=== PATIENT | female | born 1955 | race Caucasian/White ===

== ENCOUNTER 2025-07-21 10:10 | Outpatient (AMB) | payer MEDICAID, SELFPAY ==
--- NOTE | 2025-07-21 10:16 | A.PHYSOV ---
Vital Signs 07/21/25 10:17 Height 5 ft 5.75 in Weight 136 lb 10.986 oz BMI 22.2 Intake Visit Reasons: Right shoulder injection Intake Note: Patient is a 70 year old female in office today for Right Shoulder Injection and wrist injection Rubber Off Required: Yes Rubber Off Services: Rubber Off Offered & Declined Allergies No Known Allergies Allergy (Verified 07/21/25 10:15) HPI Comments Details: History of Present Illness The patient is a 70-year-old female presenting for a follow-up visit for chronic lower back pain and evaluation of increasing right wrist and shoulder pain. She has a history of chronic lower back pain and has undergone multiple lumbar procedures, including caudal injections, right sacroiliac joint injections, and left L5 transforaminal injections. Her most recent right SI joint injection was on April 08, 2025, and a previous one was in September 2024, both of which were helpful. She notes her back pain is beginning to flare up again. At her last follow-up on April 27, 2025, she complained of increasing right wrist pain and also reports increasing pain in her right shoulder. She has a history of receiving beneficial carpal tunnel injections in the past. She also had right shoulder subacromial injection with good benefit previously. Anterior approach was utilized. She reports numbness and tingling in her right upper extremity. Electrodiagnostic evaluation of right upper extremity was done on 01/18/2025. It was consistent with [id number] right carpal tunnel syndrome. As per patient she has been diagnosed with cervical radiculopathy previously in [place]. I do not have any diagnostic imaging of her cervical spine. I do not have any diagnostic imaging of her right wrist or right shoulder at this time. The current right hand pain is severe, wakes her from sleep, and causes a cramping sensation, for which a wrist brace has not been effective. Pain Description - Location: Chronic pain in the lower back, with new and increasing pain in the right wrist and right shoulder. - Quality: Reports a severe, cramping or seizing sensation with prickling in the right hand. - Severity and Impact: The hand pain is described as terrible, disrupts her sleep, and requires her to remove her CPAP mask at night. - Exacerbating Factors: Pain is worse at night and when turning over in bed. - Relieving Factors: Past injections for her back and wrist have been beneficial. Results - Tests and Diagnostics: Electrodiagnostic evaluation of right upper extremity performed on on 01/18/2025 consistent with [id number] carpal tunnel syndrome. [facility] Medical History (Updated 07/21/25 @ 10:54 by Cholo Funes DO) Osteoarthritis of carpometacarpal joint of right thumb Low back pain Sacroiliac inflammation Sacroiliac dysfunction Cervical radiculitis Neck pain Rotator cuff impingement syndrome of right shoulder Right shoulder pain Right carpal tunnel syndrome Right wrist pain Surgical History History of uterine fibroid (Unknown) History of appendectomy (Unknown) History of bunionectomy (Unknown) Social History Household Members: Spouse Alcohol intake: current Alcohol intake frequency: holidays/special occasions only Patient Tobacco Use Status: Former Tobacco user Use of substances other than those prescribed or required for medical reasons: No Current occupational status: retired Review of Systems Narrative Review of Systems - Musculoskeletal: Reports chronic lower back pain, increasing right shoulder pain, and increasing right wrist pain. - Neurological: Reports right hand cramping and prickling sensations that awaken her from sleep. - HEENT: Reports hoarseness and dysphagia with globus sensation since April 2025. - General: Reports disturbed sleep due to pain. Denies change in bowel bladder habits, denies fever or chills, denies uncontrolled depression or suicidal ideation Physical Exam Exam Exam: Physical Exam - Musculoskeletal: Palpation of the right wrist elicits tenderness. Pain with palpation over right thumb CMC joint. Crepitance with right thumb range of motion testing. Spurling maneuver was negative. Cervical range of motion was restricted in side bending and rotation to the right. Lhermitte's sign was negative. Neurological examination of upper extremities was nonfocal. Mild wasting of the right thenar eminence muscles. Lumbar range of motion was restricted in extension. Pain with palpation over right SI sulcus. SI provocative maneuvers including fabere, [place] and SI compression tests were positive. Dural tension signs were negative. Patient ambulates without antalgia. She was able to perform heel walk and toe walk with support for balance. She demonstrated no upper motor neuron signs. Examination of the right shoulder reveals positive Vargas and Neer signs. Range of motion was normal. Drop-arm test was negative, shoulder apprehension test was negative. Vital Signs: BMI result Body Mass Index 22.2 Office Procedures AMB Carpal Tunnel Injection AMB Carpal Tunnel Injection Details: With patient sitting right hand resting on the examination table skin over carpal tunnel was prepped with alcohol. 1.5 in 25 gauge hypodermic needle was introduced into the carpal tunnel and total volume of 1 cc containing 20 mg of triamcinolone and 1% lidocaine was injected after negative aspiration for blood and without resistance. Carpal Tunnel Injection -: Right All charges added?: Procedure code (CPT) selection complete AMB Shoulder Injection AMB Shoulder Injection Procedure Details: After informed consent was obtained, anterior aspect of the right shoulder was prepped with Betadine. 1.5 in 22 gauge hypodermic needle was introduced percutaneously and advanced into the subacromial area. After negative aspiration for blood total volume of 6 cc containing 40 mg of triamcinolone and 2% lidocaine was injected without resistance. Patient tolerated procedure very well without complications with excellent anesthetic response. Shoulder Injection - : Right All charges added?: Procedure code (CPT) selection complete Office Meds Kenalog 40 mg/mL suspension for injection Performing Provider: Cholo Funes DO Per[facility] Administered by: Cholo Funes DO on 07/21/25 10:58 Dose Route Admin Location Dispensed Lot Number Expiration Date [facility] Instructional Manager 20 mg peripheral nerve block 1 mL [id number] [employer] Total Dispensed Waste 1 mL 50 % lidocaine (PF) 20 mg/mL (2 %) injection solution Performing Provider: Cholo Funes DO Performing Location: [facility] Administered by: Cholo Funes DO on 07/21/25 10:58 Dose Route Admin Location Dispensed Lot Number Expiration Date [facility] Instruction[employer] Manager 10 mg peripheral nerve block 5 mL [id number] [employer] Total Dispensed Waste 5 mL 90 % Kenalog 40 mg/mL suspension for injection Performing Provider: Cholo Funes DO Performing [facility] Administered by: Cholo Funes DO on 07/21/25 10:58 Dose Route Admin Location Dispensed Lot Number Expiration Date [facility] Instruction[employer] 40 mg intrabursal 1 mL [id number] [employer] Total Dispensed Waste 1 mL 0 % lidocaine (PF) 20 mg/mL (2 %) injection solution Performing Provider: Cholo Funes DO Performing Location: [facility] Administered by: Cholo Funes DO on 07/21/25 10:58 Dose Route Admin Location Dispensed Lot Number Expiration Date [employer] Instruction[employer] 120 mg intrabursal 10 mL [id number] [facility] Total Disp[facility] Waste 10 mL 40 % Assessment & Plan Assessment & Plan (1) Right wrist pain: Code(s): M25.531 - Pain in right wrist Category: Medical (2) Right carpal tunnel syndrome: Code(s): G56.01 - Carpal tunnel syndrome, right upper limb Category: Medical (3) Right shoulder pain: Code(s): M25.511 - Pain in right shoulder Category: Medical Qualifiers: Chronicity: chronic Qualified Code(s): M25.511 - Pain in right shoulder; G89.29 - Other chronic pain (4) Rotator cuff impingement syndrome of right shoulder: Code(s): M75.41 - Impingement syndrome of right shoulder Category: Medical (5) Neck pain: Code(s): M54.2 - Cervicalgia Category: Medical (6) Cervical radiculitis: Code(s): M54.12 - Radiculopathy, cervical region Category: Medical (7) Sacroiliac dysfunction: Code(s): M53.3 - Sacrococcygeal disorders, not elsewhere classified Category: Medical (8) Sacroiliac inflammation: Code(s): M46.1 - Sacroiliitis, not elsewhere classified Category: Medical (9) Low back pain: Code(s): M54.50 - Low back pain, unspecified Category: Medical Qualifiers: Chronicity: chronic Back pain laterality: right Sciatica presence: without sciatica Qualified Code(s): M54.50 - Low back pain, unspecified; G89.29 - Other chronic pain (10) Osteoarthritis of carpometacarpal joint of right thumb: Code(s): M18.11 - Unilateral primary osteoarthritis of first carpometacarpal joint, right hand Category: Medical Plan Pain Management - Analgesia: The patient reports significant relief from past lumbar procedures, including caudal, right SI joint, and L5 transforaminal injections, as well as prior carpal tunnel injections. - Activities of Daily Living: Right hand and shoulder pain significantly interfere with her ability to sleep. - Affect: The patient expresses significant distress due to her pain, describing it as terrible. Plan Patient was informed and verbally consented to the use of an ambient scribe for clinic note documentation during this visit. 1. Chronic Lower Back Pain The patient reports her chronic lower back pain is starting to increase again. Given her positive response to prior procedures, the plan is to schedule repeat right SI joint injection, consistent with the treatment she received in March 2025. 2. Right Wrist And Shoulder Pain The patient presents with worsening right shoulder and wrist pain, with nocturnal exacerbations suggestive of carpal tunnel syndrome, though pain may also originate from the shoulder. To further evaluate, referrals for X-rays of the right shoulder and right wrist will be provided. Proceed with cervical spine x-rays. Cervical spine MRI may be considered in the future. Further management will be determined after reviewing the imaging results. Discussion Notes I discussed her chronic low back pain and the good response she has had to prior injections. We agreed to schedule repeat of the right SI joint injection. Risks and benefits of the procedure were discussed with the patient. Potential alternative measures were also discussed. Patient understands that the procedure is completely elective. Potential side effects associated with injectable medications were discussed. All questions were answered to the patient's satisfaction. Regarding her right upper extremity pain, I explained that the symptoms could be due to carpal tunnel syndrome or a shoulder issue. I provided her with a referral for X-rays of her right wrist, cervical spine and right shoulder to investigate further. The patient agreed to this plan, and we will follow up after the imaging is completed. Patient Instructions - A referral was provided for you to get X-rays of your right shoulder, cervical spine and right wrist. Please complete this imaging. - We will schedule you for another right SI joint injection for your low back pain, similar to the one you had before. - Follow up with your surgeon to discuss the recent changes in your voice and difficulty swallowing. Orders: Orders XR shoulder RT min 2V Today M25.511 - Pain in right shoulder, M75.41 - Impingement syndrome of right shoulder AMB Shoulder Injection Today M75.41 - Impingement syndrome of right shoulder AMB Carpal Tunnel Injection Today G56.01 - Carpal tunnel syndrome, right upper limb XR wrist RT 2V Today G56.01 - Carpal tunnel syndrome, right upper limb, M25.531 - Pain in right wrist XR cervical spine 3V Today M54.12 - Radiculopathy, cervical region, M54.2 - Cervicalgia Coding Level of Care Code Est Pt Level 4 (49671) Complex visit Add On G2211 Diagnoses Right wrist pain M25.531 Right carpal tunnel syndrome G56.01 Chronic right shoulder pain M25.511; G89.29 Chronicity: chronic Rotator cuff impingement syndrome of right shoulder M75.41 Neck pain M54.2 Cervical radiculitis M54.12 Sacroiliac dysfunction M53.3 Sacroiliac inflammation M46.1 Chronic right-sided low back pain without sciatica M54.50; G89.29 Chronicity: chronic Back pain laterality: right Sciatica presence: without sciatica Osteoarthritis of carpometacarpal joint of right thumb M18.11 CPT Codes AMB Carpal Tunnel Injection - Carpal Tunnel Therapeutic Injection - : Right ([id number]) AMB Shoulder Injection - Hip/Bursa Injection - : Right ([id number])
[2025-07-21 10:17] VITALS: BMI 22.2
--- OUTSIDE RECORDS SUMMARY | 2025-07-21 12:11 | XMS_ITS | Clinical Summary ---
Author Organization [place] [id number] [facility] Building Address [address] [place] [address] Phone Care Team Providers Care Incinerator Attendant Name Role Phone Nerissa Rubio MD Primary Care Provider Allergies No known active allergies Medications rhubarb root extract 4 mg tablet Take by mouth. 09/02/19 24 Active traMADoL (ULTRAM) 50 mg tablet Take 1 Tablet by mouth every 4 hours as needed. Active rivaroxaban (XARELTO) 20 mg tablet Take 1 tablet (20 mg total) by mouth 1 (one) time each day with dinner. Take with food. 30 tablet 11 09/23/19 25 Active losartan (Cozaar) 25 mg tabletIndication s:Primary hypertension Take 1 tablet (25 mg total) by mouth 1 (one) time each day. 90 each 3 07/06/20 25 026 Active metoprolol succinate (TOPROL-XL) 50 mg 24 hr tablet Take 1 tablet (50 mg total) by mouth 1 (one) time each day. Do not crush or chew. 30 each 07/07/20 25 026 Active losartan (Cozaar) 25 mg tablet Take 1 tablet (25 mg total) by mouth 1 (one) time each day. 30 each 09/23/19 25 025 Discontinued(Re order) metoprolol succinate (TOPROL-XL) 25 mg 24 hr tablet Take 1 tablet (25 mg total) by mouth 1 (one) time each day. Do not crush or chew. 30 each 09/23/19 25 025 Discontinued(Do se adjustment) dilTIAZem XR (DILACOR XR) 180 mg 24 hr capsule Take 1 capsule (180 mg total) by mouth 1 (one) time each day. 30 capsule 11 09/23/19 25 025 Discontinued dilTIAZem CD (CARDIZEM CD) 240 mg 24 hr capsuleIndicatio ns:Atrial fibrillation with RVR (CMS/HCC V24, CMS/HCC V28),Primary hypertension Take 1 capsule (240 mg total) by mouth 1 (one) time each day. 30 each 07/03/20 25 025 Discontinued(Di scontinued by another clinician) Active Problems Problem Noted Date Diagnosed Date Atrial fibrillation with RVR (CMS/HCC V24, CMS/H CC V28) 09/03/2023 Overview (07/01/2024): Last Assessment & Plan: She had an episode of atrial fibrillation in the setting of COVID infection. But she still feels palpitations without objective evidence of tachycardia. Will schedule a Holter monitor to see whether her symptoms correlated with some type of tachyarrhythmia. I will add low-dose metoprolol. Will continue anticoagulation Assessment & Plan (07/03/2025 11:04 PM EST): Orders: ECG 12 lead dilTIAZem CD (CARDIZEM CD) 240 mg 24 hr capsule; Take 1 capsule (240 mg total) by mouth 1 (one) time each day. Assessment & Plan (12/07/2024 1:34 PM EDT): Orders: ECG 12 lead Assessment & Plan (10/06/2024 6:03 PM EST): Orders: ECG 12 lead Cardiac event monitor; Future Assessment & Plan (09/23/2024 10:17 AM EST): Has remained in the sinus rhythm. Has tolerated Xarelto well but expressed desire to avoid long-term anticoagulation. We had a long discussion about minimizing NSAID including baclofen but she can take it as needed occasionally. I will refer her to EP team for a further discussion about watchman. Will continue current rate control regimen. She can hold Xarelto for a few days if needed for her injection. Orders: ECG 12 lead Hypertension 09/03/2023 Overview (07/01/2024): Last Assessment & Plan: Overall controlled. Assessment & Plan (07/03/2025 11:04 PM EST): Orders: dilTIAZem CD (CARDIZEM CD) 240 mg 24 hr capsule; Take 1 capsule (240 mg total) by mouth 1 (one) time each day. Assessment & Plan (12/07/2024 1:34 PM EDT): Assessment & Plan (09/23/2024 10:17 AM EST): Blood pressure is higher. I suggest her to switch metoprolol to evening for better control of elevated blood pressure in the morning. Also add low-dose losartan. Encounters Date Type Department Care Team Description 07/05/2025 Telephone [facility] [address] [facility] [address] [place] [phone] Marie Guillory MD 06/28/2025 2:55 PM EST Office Visit [facility] [address] [facility] [address] [place] [address] Marie Guillory MD Atrial fibrillation with RVR (CMS/HCC V24, CMS/HCC V28) (Primary Dx); Primary hypertension from Last 3 Months Immunizations Immunization Administration Dates Next Due Pneumococcal conjugate 20 va lent (Prevnar 20, PCV 20) 2mo and older 09/22/2023 Tdap Tetanus diptheria acell ular pertussis (Boostrix; Adacel) 7yo and older 09/22/2023 Zoster recombinant (Shingrix) 19yo and older ,04/10/2023 Surgical History Surgery Date Site/Laterality Comments MYOMECTOMY 03/12/2001 PROCEDURE: IL LAPS MYOMECTOMY EXC 1-4 MYOMAS 250 GM/<; COMMENT: done in [place] APPENDECTOMY 03/01/1980 PROCEDURE: HISTORICAL APPENDECTOMY OTHER SURGICAL HISTORY PROCEDURE: [place] EXCISION NASAL POLYP SIMPLE; COMMENT: done in [place] OTHER SURGICAL HISTORY 08/20/2022 PROCEDURE: DENTAL RECEMENT CROWN; COMMENT: done [place] BREAST ENHANCEMENT SURGERY W IMPLANT HYSTERECTOMY Medical History Medical History Date Comments Migraine headache DX:Migraine he adache Family History Medical History Relation Name Comments Stomach cancer Father on surgi chris table Hypertension Mother at 68yr Other: hysterectomy' Mother Hypertension Sister Other: hysterectomy Sister Other: diverticulitis Son colost zoraida Relation Name Status Comments Father Mother Sister Alive Son Alive Social History Tobacco Use Types Packs/Day Years Used Date Smoking Tobacco: Never Smokeless Tobacco: Never Tobacco Cessation:Counseling Given: Not Answered Alcohol Use Standard Drinks/Week Comments Yes 7 (1 standard drink = 0.6 oz pur e alcohol) Comments No Sex and Gender Information Value Date Recorded Sex Assigned at Not on file Legal Sex Female 8:51 PM EST Gender Identity Not on file Sexual Orientation Not on file Obstetrics History Para Term AB IAB SAB Ectopic Multiple Livin g Live Births 1 Last Filed Vital Signs Vital Sign Reading Time Taken Comments Blood Pressure 140/80 06/28/2025 2:51 PM EST Pulse 66 06/28/2025 2:51 PM EST Temperature 36.1 C (96.9 F) 08/05/2024 9:12 AM EST Respiratory Rate 16 08/05/2024 9:12 AM EST Oxygen Saturation 97% 06/28/2025 2:51 PM EST Inhaled Oxygen Concentration - - Weight 64 kg (141 lb) 06/28/2025 2:51 PM EST Height 167.6 cm (5' 6 ) 03/15/2025 1:30 PM EDT Body Mass Index 22.76 03/15/2025 1:30 PM EDT Plan of Treatment Health Maintenance Due Date Last Done Comments Falls Risk Assessment 09/12/2023 Social Influencers of Health Screening 09/12/2023 Depression Screening 08/18/2024 COVID-19 Vaccine ( season) 2025 06/06/2021, 05/16/2021 Influenza Vaccine (#1) 2025 Osteoporosis Screening (Bone Density Screening) 01/14/2026 01/15/2024 Hypertension/CHF/CAD Annual BMP Blood Test 02/22/2026 02/22/2025, 11/10/2024, 08/04/2024, Additional history exists Breast Cancer Screening 03/15/2027 03/15/20 25, 01/21/2024, 01/19/2024 RSV Immunization Adult Patients (1 - 1-dose 75+ series) 2029 Cholesterol Screening (Lipid Panel) 02/22/2030 02/22/2025, 02/22/2025, 11/06/2023, Additional history exists DTaP,Tdap,and Td Vaccines (2 - Td or Tdap) 09/22/2033 09/22/2023 Colorectal Cancer Screening: Colonoscopy 11/03/2033 11/04/2023 Zoster Vaccines Completed 07/16/2023, 04/10/2023 Pneumococcal Vaccine: 50+ Years Completed 09/22/2023 Hepatitis C Screening Completed 11/06/2023, 024 HIB Vaccines Aged Out No longer eligi ble based on patient's age to complete this topic HPV Vaccines Aged Out No longer eligi ble based on patient's age to complete this topic Hepatitis A Vaccines Aged Out No long er eligible based on patient's age to complete this topic Hepatitis B Vaccines Aged Out No long er eligible based on patient's age to complete this topic IPV Vaccines Aged Out No longer eligi ble based on patient's age to complete this topic MMR Vaccines Aged Out No longer eligi ble based on patient's age to complete this topic Meningococcal ACWY Vaccine Aged Out N o longer eligible based on patient's age to complete this topic Meningococcal B Vaccine Aged Out No l onger eligible based on patient's age to complete this topic RSV Immunization Patients Under 20 months Aged Out No longer eligible based on patient's age to complete this topic Varicella Vaccines Aged Out No longer eligible based on patient's age to complete this topic Procedures Procedure Name Priority Date/Time Associated Diagnosis Comments ECG 12-LEAD Routine 06/28/2025 2:58 PM EST Atrial fibrillation with RVR (CMS/HCC V24, CMS/HCC V28) MG MAMMO DIGITAL SCREENING W ENOC BILAT Routine 03/15/2025 1:33 PM EDT Encounter for screening mammogram for malignant neoplasm of breast JIMMY DEXA AXIAL SKELETON Routine 01/15/2024 9:01 AM EDT HEPATITIS C SCREENING Routine 09/24/2023 ANNUAL BMP BLOOD TEST Routine 09/24/2023 LIPID PANEL Routine 09/24/2023 from Last 3 Months or Most Recently Relevant to Health Maintenance Results * ECG 12 lead (06/28/2025 2:58 PM EST) Ventricular Rate ECG 66 BPM GEMUSE Atrial Rate 66 BPM GEMUSE P-R Interval 140 ms GEMUSE QRS Duration 78 ms GEMUSE Q-T Interval 442 ms GEMUSE QTc 463 ms GEMUSE P Wave [place] 56 degrees GEMUSE R [place] 58 degrees GEMUSE T [place] 59 degrees GEMUSE ECG Interpretation Normal sinus rhythm When compared with ECG of 30-NOV-2024 15:12, No significant change was found Confirmed by ALMA GUILLORY ([id number]) on 07/03/2025 11:01:53 PM GEMUSE 06/28/2025 2:58 PM EST 07/03/2025 11:01 PM EST us Marie Guillory MD ECG ORDERABLES Final Resu lt GEMUSE * MG Mammo Digital Screening w Enoc bilat (03/15/2025 1:33 PM EDT) Anatomical Region Laterality Modality Breast Bilateral Mammography 03/16/2025 7:38 AM EDT Impressions 03/16/2025 7:44 AM EDT No mammographic evidence of malignancy. No suspicious interval change. Study is significantly limited by opaque peripherally calcified implants on each side. Much of the anatomy is obscured. ASSESSMENT: BI-RADS 2: BENIGN RECOMMENDATION(S): 1: Routine screening mammogram BILATERAL in 1 year. [facility] [address], [id number] -------- FINAL REPORT -------- Dictated By: Dipak Galicia Dictated Date: 03/16/2025 07:38 ET Assigned Physician: Dipak Galicia Reviewed and Electronically Signed By: Dipak Galicia Signed Date: 03/16/2025 07:44 ET Workstation ID: [id number] Transcribed By: Self Edit Transcribed Date: 03/16/2025 07:38 ET Narrative 03/16/2025 7:44 AM EDT EXAM: SCREENING MAMMOGRAPHY, BILATERAL HISTORY: SCREENING. Prior implant surgery COMPARISON: 01/19/24 TECHNIQUE: Synthesized CC and MLO projections of each breast with implant displacement. Tomosynthesis of each breast in the CC and MLO projections with implant displacement. ADDITIONAL IMAGING: Digital mammography of each breast in the craniocaudal and MLO projections without displacement. Computer-aided detection was employed with the Delta ID [id number] [id number]. TISSUE DENSITY: The breasts are heterogeneously dense, which may obscure small masses. (BI-RADS category C) FINDINGS: Opaque implants with extensive calcification obscures some of the anatomy and limits the exam. RIGHT BREAST: No suspicious mass. No suspicious calcification. No distortion. No additional suspicious right breast findings. No change in the implant contour. LEFT BREAST: No suspicious mass. No suspicious calcification. No distortion. No additional suspicious left breast findings Procedure Note Dipak Galicia MD - 03/16/2025 EXAM: SCREENING MAMMOGRAPHY, BILATERAL HISTORY: SCREENING. Prior implant surgery COMPARISON: 01/19/24 TECHNIQUE: Synthesized CC and MLO projections of each breast with implantdisplacement. Tomosynthesis of each breast in the CC and MLO projectionswith implant displacement. ADDITIONAL IMAGING: Digital mammography of each breast in the craniocaudaland MLO projections without displacement. Computer-aided detection was employed with the Delta ID [id number] 3-D. TISSUE DENSITY: The breasts are heterogeneously dense, which may obscuresmall masses. (BI-RADS category C) FINDINGS: Opaque implants with extensive calcification obscures some of the anatomyand limits the exam. RIGHT BREAST: No suspicious mass. No suspicious calcification. No distortion. Noadditional suspicious right breast findings. No change in the implantcontour. LEFT BREAST: No suspicious mass. No suspicious calcification. No distortion. Noadditional suspicious left breast findings IMPRESSION: No mammographic evidence of malignancy. No suspicious interval change. Study is significantly limited by opaque peripherally calcified implantson each side. Much of the anatomy is obscured. ASSESSMENT: BI-RADS 2: BENIGN RECOMMENDATION(S): 1: Routine screening mammogram BILATERAL in 1 year. [facility] [address] [place], [address] -------- FINAL REPORT -------- Dictated By: Dipak Galicia Dictated Date: 03/16/2025 07:38 ET Assigned Physician: Dipak Galicia Reviewed and Electronically Signed By: Dipak Galicia Signed Date: 03/16/2025 07:44 ET Workstation ID: [id number] Transcribed By: Self Edit Transcribed Date: 03/16/2025 07:38 ET us Joellen CULLEN IMG BI PROCEDURES Final Resul t * JIMMY DEXA AXIAL SKELETON (01/15/2024 9:01 AM EDT) Anatomical Region Laterality Modality Mammography 01/15/2024 7:45 AM EDT Narrative 01/15/2024 9:01 AM EDT [facility] Diagnostic Imaging Department [address] [place] [address] Patient: AUGUSTINA TEIXEIRA./Age/Sex: 1955 - 68 - F Unit#: [id number] [facility] Ordering Physician: NATI GARLAND OIL TESTER Jimmy Dexa Axial Skeleton - 01/15/2407 Report Status:Signed HISTORY: The patient is a 68-year-old postmenopausal female with clinical concern for metabolic bone disease. FINDINGS: Dual energy x-ray absorptiometry of the lumbar spine and femurs is performed. The mean bone mineral density at L1-2 is 0.895 gm/cm2 which is 77% of that of young normals and 94% of that of age matched controls. This yields a T- score of -2.2 and a Z-score of -0.5 which is diagnostic of osteopenia. The mean bone mineral density of the femurs bilaterally is 0.902 gm/cm2 which is 89% of that of young normals and 110% of that of age matched controls. This yields a T-score of -0.8 and a Z-score of 0.7 and there is therefore no evidence of osteoporosis or osteopenia here. However, the T-score of the right femoral neck is -1.6 and that of the left femoral neck is -1.4 which is diagnostic of osteopenia. IMPRESSION: 1. Osteopenia. 2. FRAX analysis yields a 10-year probability of major osteoporotic fracture of 9.5% and a 10-year probability of hip fracture of 1.5%. Code 06370 Dictating Physician: ROBY MOORE MD Electronically Signed by: ROBY MOORE MD Dic Date/Time: 01/15/24899 Sign date/Time: 01/15/24900 Procedure Note Roby Moore MD - 04/05/2024 [facility] Diagnostic Imaging Department [address] [place], [place] [id number] Patient: AUGUSTINA TEIXEIRA/Age/Sex: 1955 - - Unit#: [id number] Location/Status: [facility]REG CLI Mnemonic/Ordering Site: [facility] Ordering Physician: NATI GARLAND NP [facility] Dexa Axial Skeleton - 01/15/24832 Report Status:Signed HISTORY: The patient is a 68-year-old postmenopausal female withclinical concern for metabolic bone disease. FINDINGS: Dual energy x-ray absorptiometry of the lumbar spine and femursis performed. The mean bone mineral density at L1-2 is 0.895 gm/cm2 which is77% of that of young normals and 94% of that of age matched controls. This yieldsa T- score of -2.2 and a Z-score of -0.5 which is diagnostic of osteopenia. The mean bone mineral density of the femurs bilaterally is 0.902 gm/vt5nfzgv is 89% of that of young normals and 110% of that of age matched controls.This yields a T-score of -0.8 and a Z-score of 0.7 and there is therefore noevidence of osteoporosis or osteopenia here. However, the T-score of the rightfemoral neck is -1.6 and that of the left femoral neck is -1.4 which is diagnosticof osteopenia. IMPRESSION: 1. Osteopenia. 2. FRAX analysis yields a 10-year probability of major osteoporoticfracture of 9.5% and a 10-year probability of hip fracture of 1.5%. Code 31499 Dictating Physician: ROBY MOORE MD Electronically Signed by: ROBY MOORE MD Dic Date/Time: 01/15/24899 Sign date/Time: 01/15/24900 Nati Garland NP IMG BI PROCEDURES Final Result * Annual BMP Blood Test (09/24/2023) Annual BMP Blood Test Abstracted Historical Provider HEALTH MAINTENANCE Final Result * Hepatitis C Screening (09/24/2023) Hepatitis C Screening Abstracted Historical Provider HEALTH MAINTENANCE Final Result * Lipid panel (09/24/2023) LDL/HDL Ratio 2 0 - 4 Triglycerides 36 0 - 150 mg/dL Cholesterol 193 0 - 200 mg/dL HDL 106 >=40 mg/dL LDL Cholesterol 80 0 - 100 mg/dL Blood Venous blood specimen / Unknown Historical Provider LAB BLOOD ORDERABLES Vanessa l Result from Last 3 Months or Most Recently Relevant to Health Maintenance Insurance MEDICAID - [place] Care Teams Incinerator Attendant Relationship Specialty Start Date End Date Nerissa Rubio MD [address] [place] [id number] PCP - General Internal Medicine 09/23/24
== END 2025-07-21 10:43 | disposition home or self-care (01) ==
LOC: HO.HPHYS 10:10
PROVIDERS: PCP Family Medicine; Visit Provider Physical Medicine & Rehabilitation
DX: M25.531 Pain in right wrist (principal); G56.01 Carpal tunnel syndrome, right upper limb; M25.511 Pain in right shoulder; G89.29 Other chronic pain; M75.41 Impingement syndrome of right shoulder; M54.2 Cervicalgia; M54.12 Radiculopathy, cervical region; M53.3 Sacrococcygeal disorders, not elsewhere classified; M46.1 Sacroiliitis, not elsewhere classified; M54.50 Low back pain, unspecified; M18.11 Unilateral primary osteoarthritis of first carpometacarpal joint, right hand
CPT/HCPCS: 20526; 20610; 99214

== ENCOUNTER → 2025-07-21 10:10 | Outpatient (BNVA) | payer MEDICAID, SELFPAY | PROVIDERS: PCP Family Medicine; Visit Provider Physical Medicine & Rehabilitation | DX: M25.531 Pain in right wrist (principal); M75.41 Impingement syndrome of right shoulder; M54.12 Radiculopathy, cervical region; M53.3 Sacrococcygeal disorders, not elsewhere classified; G89.29 Other chronic pain; M54.50 Low back pain, unspecified; M46.1 Sacroiliitis, not elsewhere classified; M18.11 Unilateral primary osteoarthritis of first carpometacarpal joint, right hand | CPT/HCPCS: 20526; 20610; 99212; J2003; J3301 ==

== ENCOUNTER 2025-08-05 09:03 | Outpatient (REF) | payer MEDICAID, SELFPAY ==
--- OUTSIDE RECORDS SUMMARY | 2025-08-05 09:52 | XMS_ITS | Data Portability ---
Author Organization [place] - [facility], Allergy Address [address] [address] Care Team Providers Care Intelligence Manager Name Role Phone YANIRA MARTINEZ Referring Provider YANIRA MARTINEZ Referring Provider Assessment Encounter Date Assessment Date Assessment LastModified by Organization Details LastModified Time 03/15/2025 03/15/2025 69yo female presents following bilateral FESS with septo turb on 03/01/[address] Maradiaga. Pathology is benign. She reports overall symptom improvement. Nares debrided to patient's tolerance. Patient may alternate between Ibuprofen and Tylenol for pain. She will continue saline irrigations. The patient will follow up in 2 weeks as scheduled with MD for reevaluation, or sooner with worsening symptoms. [email or web address] Not available 03/15/2025 14:49:44 04/01/2025 04/01/2025 - Status post sinus surgery. - Persistent nasal discharge and scabbing. - Incomplete return of sense of smell. - Headaches. The patient is advised to continue using salt water rinses with a squeeze bottle twice daily to assist in clearing mucus and scabbing from the nasal passages. Budesonide is recommended to help prevent the recurrence of nasal polyps, and refills are already available for this medication. The patient is scheduled for a follow-up appointment on May 02, during which a hearing test will be conducted to evaluate any auditory concerns. Counseling was provided regarding the gradual return of the sense of smell, emphasizing that this process takes time. The patient was reassured about the healing process and encouraged to maintain compliance with the prescribed treatments. [email or web address] Not available 04/01/2025 15:57:01 06/27/2025 06/27/2025 70-year-old female who has a history of right sided endoscopic sinus surgery presents today for onset of hoarseness in April, not associated with any sore throat or dysphagia. She has been using fluticasone, but not nasal rinses or budesonide as previously recommended by Dr. Maradiaga; she reports she was told not to use them. Flexible laryngoscopy today did not reveal any vocal cord lesions. We reviewed vocal hygiene. I recommended that she use the nasal rinses. If no improvement, she could try famotidine in case there is a component of LPR. She has follow-up in October already scheduled. We discussed repeat laryngoscopy/ev aluation for voice therapy depending on clinical response. [email or web address] Not available 06/29/2025 09:27:01 07/25/2025 07/25/2025 Betzaida Teixeira is a 70-year-old female no evidence of recurrent nasal polyp. Laryngeal function appears normal. No obvious cause for persistent dysphonia or swallowing difficulty. She will undergo a swallowing test and be referred to a speech therapist for further evaluation and management. [email or web address] Not available 07/25/2025 15:09:20 Plan of Treatment Reminders Order Date Submit Date Provider Last Modified By Organization Details Last Modified Time Details Appointments Establi shed 30 2025 10:00A M JOSE ENRIQUE FARLEY MD Not available Not available Not available Lab None recorde d. Referral speech therapy referra l 2024 025 [email or web address] [facility] Scheduling Dept, [address] [facility], [place], [address], 07/26/2025 12:29:24 Procedures None recorde d. Surgeries None recorde d. Imaging barium swallow study 2024 025 [facility] [place], [address] [place] [address], [address], 08/04/2025 09:58:51 Medication Orders Pepcid 20 mg tablet 2024 025 [id number], [address] [facility], [place], [address], 06/27/2025 14:41:04 Patient TargetsNo targets recorded. Patient Instructions Encounter Date Encounter Id Patient Instructions Last Modified By Organization Details Last Modified Time 04/01/2025 [id number] Perform salt water rinses with a squeeze bottle twice daily. Continue using Budesonide as prescribed. Follow up on May 02 for a hearing test. [email or web address] Not available 04/01/2025 15:57:01 Please note: Parts of this encounter note have been generated by AI based on audio conversation. Patient consent was required prior to utilizing this technology. Content review was required prior to finalizing the note. [email or web address] Not available 04/01/2025 15:57:02 07/25/2025 [id number] - Undergo a swallowing test. - Follow up with a speech therapist for further evaluation and management. [email or web address] Not available 07/25/2025 14:06:26 Please note: Parts of this encounter note have been generated by AI based on audio conversation. Patient consent was required prior to utilizing this technology. Content review was required prior to finalizing the note. [email or web address] Not available 07/25/2025 14:06:27 Reason for Referral Referring Physician: Jose Enrique ramirez, Otolaryngology, Encounter Date: 07/25/2025 Results Created Date Observation Date Name Description Value Unit Range Abnormal Flag Note LastModifiedBy Organization Detail LastModifiedTime 03/02/2003/01/2025 clini chris photo * No observ ation record ed. [email or web address] Not Available 02/15 13:30:52 05/02/20 audio gram No observ ation record ed. BARCODE Not Available 2024 10:18:56 08/03/20 25 08/03/2025 curt negron study No observ ation record ed. [email or web address] Not Available 09:24:16 Result Notes None recorded. Problems Name Problem SNOMED Code Status Onset Date Resolution Date Notes Provider Name and Address Organization Details Recorded Time Chronic rhinitis 54300390 Active 2024 JOSE ENRIQUE FARLEY MD [address], [place], [address], [place] - [facility] 5 15:55:54 Polyp of nasal cavity 336577179 Active 2024 JOSE ENRIQUE FARLEY MD [address] [facility],[address], [place], [address], [facility] - [facility] 5 15:55:52 Chronic sinusitis 85372233 Active 2024 JOSE ENRIQUE FARLEY MD [address] [facility],[address], [place], [address], [place] - [facility] 5 14:04:34 Deviated nasal septum 164824527 Active 2024 JOSE ENRIQUE FARLEY MD [address] [facility],[address], [place], [address], [place] - [facility] 5 08:48:27 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 2024 JOSE ENRIQUE FARLEY MD [address] [facility],[address], [place], [address], [place] - [facility] 5 08:49:51 Bilateral tinnitus 7097617612797 Active 2024 JOSE ENRIQUE FARLEY MD [address] [facility],[address], [place], [address], [place] - [facility] 5 15:55:59 Sensorineur al hearing loss of bilateral ears 033851388 Active 2024 MARIO FLETCHER , JOHN [address] [facility],[address], [place], [address], [place] - [facility] 5 09:28:28 Frequent headache 184881853 Active 2024 JOSE ENRIQUE FARLEY MD [address] [facility],[address], [place], [address], [place] - [facility] 5 09:52:21 Sense of smell impaired 94006623 Active 2024 JOSE ENRIQUE FARLEY MD [address] [facility],[address] [facility], [place], [address], [facility] - [facility] 09:59:29 Hoarse 70390299 Active 2024 FERMIN MANN MD [address] [facility],[place] [address], [place], [address], [facility] - [facility] 14:23:16 Oropharynge al dysphagia 67897388 Active 2024 JOSE ENRIQUE FARLEY MD [address] [facility], [address] [facility], [place], [address], [facility] 14:04:18 Dysphonia 40078219 Active 2024 JOSE ENRIQUE FARLEY MD [address] [facility],[place] [address], [place], [address], [facility] 14:04:29 Problem Notes None recorded. Procedures Surgical History Date Name Laterality Status Provider Name and Address Organization Details Recorded Time 07/25/20 25 Fiberoptic Laryngoscopy (Comprehensive) completed JOSE ENRIQUE MARADIAGA MD 100 [facility],[address], [address], [facility] 07/25/2025 14:05:36 06/27/20 25 Fiberoptic Laryngoscopy (Comprehensive) completed FERMIN MANN MD 100 [facility],[address], [address], [facility] 06/29/2025 09:25:09 05/02/20 25 JMSNasal/Sinus Endoscopy completed JOSE ENRIQUE MARADIAGA MD 100 [facility],[address], [address], [facility] 05/02/2025 09:51:53 05/02/20 25 Tympanometry - 77541 completed JOHN SANDERS [address] [facility],[address], [address], [facility] - [facility] 05/02/2025 09:28:23 05/02/20 25 Air & Bone Audio - 57353 completed JOHN SANDERS [address] [facility],[address], [address], [facility] - [facility] 05/02/2025 09:28:19 04/01/20 25 Fiberoptic Laryngoscopy (Comprehensive) completed JOSE ENRIQUE MARADIAGA MD [address] [facility],[address], [address], [facility] - [facility] 04/01/2025 15:55:04 03/15/20 25 JMSNasal/Sinus Endoscopy-DEBRID EMENT completed INÉS CONTRERAS PA-C [address] [place] [address],[address], [address], [facility] - [facility] 03/15/2025 14:48:39 03/03/20 25 JMSNasal/Sinus Endoscopy-DEBRID EMENT completed DAYANARA AREVALO PA-C [address] [facility],[address], [address], [facility] - [facility] 03/03/2025 12:50:21 03/01/20 25 functional endoscopic sinus surgery completed JOSE ENRIQUE MARADIAGA MD [address] [facility],[address], [address], [facility] 03/01/2025 14:36:58 03/01/20 25 nasal septoplasty completed JOSE ENRIQUE MARADIAGA MD [address] [facility],[address], [address], [facility] 03/01/2025 14:37:30 03/01/20 25 direct laryngoscopy with operating microscope completed JOSE ENRIQUE MARADIAGA MD [address] [facility],[address], [address], [facility] 03/01/2025 14:57:42 12/23/19 25 Fiberoptic Laryngoscopy (Comprehensive) completed JOSE ENRIQUE MARADIAGA MD [address] [facility],[address], [address], [facility] - [facility] 12/22/2024 08:49:37 10/11/19 25 JMSNasal/Sinus Endoscopy completed JOSE ENRIQUE MARADIAGA MD [address] [facility],[address], [address], [facility] 10/11/2024 11:10:57 nasal polypectomy completed JOSE ENRIQUE MARADIAGA MD [address] [facility],[address], [address], [facility] - [facility] 10/11/2024 11:08:59 Imaging Results None recorded. Procedure Notes None recorded. Medical Equipment None Reported. Allergies No known drug allergies Medications Name Sig Start Date Stop Date Status Note LastModified by Organization Details LastModified Time prednisone 20 mg tablet Take 2 tablets daily for 5 days with food 12/22 completed Not Available Not Available Not Available losartan 25 mg tablet Take 1 tablet every day by oral route. active Not Available Not Available No t Available budesonide 0.5 mg/2 mL suspension for nebulizatio n active Not Available Not Available Not Available Pepcid 20 mg tablet Take 1 tablet twice a day by oral route for 30 days. 2024 active Not Available Not Available Not Avai lable fluticasone propionate 50 mcg/actuati on nasal spray,suspe nsion [place] 2 sprays every day by intranasa l route. 2024 active Not Available Not Available Not Avai lable Xarelto active Not Available Not Avail able Not Available Vitals Date Recorded Body height Body mass index (BMI) Body weight Provider Name and Address Organization Details Last Updated DateTime 03/15/2025 165.1 cm 24 kg/m2 89029.3 g Yasmine Oconnor [place] - [facility] 03/15/2025 14:02:52 Date Recorded Body height Body mass index (BMI) Body weight Provider Name and Address Organization Details Last Updated DateTime 05/02/2025 170.18 cm 21.3 kg/m2 95527.56 g Hali Anderson [place] [facility] 05/02/2025 09:37:50 Date Recorded Body height Body mass index (BMI) Body weight Systolic And Diastolic Provider Name and Address Organization Details Last Updated DateTime 06/27/2025 167.64 cm 17.8 kg/m2 68283.16 g 158/82 mm[Hg] Hali Anderson [place] [facility] 06/27/2025 14:17:57 Date Recorded Body height Body mass index (BMI) Body weight Systolic And Diastolic Provider Name and Address Organization Details Last Updated DateTime 07/25/2025 167.64 cm 17.8 kg/m2 43112.16 g 132/72 mm[Hg] Barbara Lowryos [facility] 07/25/2025 13:55:21 Social History None recorded. Functional Status None recorded. Mental Status None recorded. Family History Nothing Reported. Medical History Condition Response Nasal or Sinus Problems Y Heart Problems Migraines Y Hypertension Y Nasal polyps Y Gynecological HistoryNo gynecological history recorded. Obstetrics History GPAL:G 0 P 0 0 0 0 Past Encounters Encounter ID Performer Location Encounter Start Date Encounter Closed Date Diagnosis/Indication Diagnosis SNOMED-CT Code Diagnosis ICD10 Code Diagnosis IMO Codes Diagnosis Note [id number] JOSE ENRIQUE NIEVES MD [facility] [address] [address] 10/11/2024 10:32:15 10/11/2024 11:29:24 Chronic rhinitis 02700294 J31.0 Polyp of nasal cavity 73 2249898 J33.0 Chronic sinusitis 071818 00 J32.9 [id number] JOSE ENRIQUE NIEVES MD [facility] [address] [address] 12/22/2024 08:15:10 12/22/2024 08:59:02 Chronic sinusitis 36668660 J32.9 Polyp of nasal cavity 73 5652828 J33.0 Please contact my surgical elastic knitter hand frame, Madelaine, at to schedule the procedure. The risks and benefits of endoscopic sinus surgery were discussed with the patient, including: bleeding, infection, anosmia (loss of sense of smell), epiphora (tearing), double vision, loss of vision, CSF leak, continued nasal obstructio n, brain injury, septal perforatio n and continued sinus infections . The patient's questions regarding surgery were discussed in detail and their concerns were addressed. The patient provided verbal informed consent and surgery will be scheduled in the near future. Brochure given Patient was able to articulate risks back to me using interprete r Deviated nasal septum 12 5722545 J34.2 281993 Benign eduar plasm of base of tongue 87087945 D10.1 057020 [id number] DAYANARA AREVALO PA-C [facility] [address] [address] 03/03/2025 10:54:29 03/03/2025 11:53:45 Benign neoplasm of base of tongue 76300041 D10.1 736109 Chronic sinusitis 141005 00 J32.9 Deviated nasal septum 12 7364212 J34.2 407637 Polyp of nasal cavity 73 2869173 J33.0 Postoperative visit 1836 39830 Z48.89 [id number] INÉS CONTRERAS PA-C [facility] [address] [address] 03/15/2025 13:45:30 03/15/2025 14:35:39 Polyp of nasal cavity 692359350 J33.0 Chronic sinusitis 135889 00 J32.9 [id number] JOSE ENRIQUE NIEVES MD [facility] [address] [address] 04/01/2025 15:22:52 04/01/2025 16:00:02 Polyp of nasal cavity 112620810 J33.0 37411 Chronic rhinitis 3093041 6 J31.0 2545 Bilateral tinnitus 79912 64980 102 H93.13 246011 [id number] JOSE ENRIQUE NIEVES MD [facility] [address] [address] 05/02/2025 08:55:10 05/02/2025 10:03:33 Sensorineural hearing loss of bilateral ears 957581484 H90.3 84193414 Audiologic al evaluation results: Right ear: Normal sloping to a mild sensorineu ral hearing loss. Left ear: Normal sloping to severe sensorineu ral hearing loss. Tympanomet ry: Right Ear:Type A Left Ear:Type A Chronic rhinitis 4259677 6 J31.0 2545 Frequent headache 972605 003 R51.9 42117811 info on possible migraine given to patient. She will review with google translate Sense of beba reyna 10415569 R43.8 [id number] FERMIN MANN MD [facility] [address] [address] 06/27/2025 14:10:47 06/27/2025 16:26:55 Hoarse 11405817 R49.0 64611 Chronic rhinitis 5071011 6 J31.0 2545 [id number] JOSE ENRIQUE NIEVES MD [facility] [address] [address] 07/25/2025 13:43:39 07/25/2025 14:08:40 Oropharyngeal dysphagia 14221763 R13.12 8208 Dysphonia 97011399 R49.0 08601 Chronic sinusitis 747114 00 J32.8 85791 Health Concerns Section Related Observation LastModified by Organization Detai ls LastModified Time None Recorded Concern Status LastModified by Organization Details LastModified Time None Recorded Advance Directives Directive None Recorded Payers Insurance Date Sequence Insurance Name Policy Number Policy Duff Covered Member ID Duff Member ID Guarantor Name 07/22/2025 1 [place] [facility] Betzaida Teixeira [id number] Betzaida Teixeira Notes Date Note Type Note Provider Name and Address Organization Details Recorded Time 03/15/2025 text/html ROS as noted in the HPI 69yo female presents following bilateral FESS with septo turb on 03/01/[address] Maradiaga. Pathology is benign. She reports overall symptom improvement. She continues to endorse headache, and feels there is no improvement with oral analgesics. She does not want to take ibuprofen or tylenol. She has been following postop instructions with saline. Endorses anosmia. JOSE ENRIQUE MARADIAGA MD [address] [place] [address], [address], [facility] 03/15/2025 14:57:04 04/01/2025 text/html headache and tinnitus persists despite surgery. hx of large right sided polyp Betzaida Teixeira is a 69-year-old female who presents for post-operative evaluation of her sinuses following recent surgery. She reports improvement in symptoms but notes persistent bloody discharge from the nose, which has nearly resolved. She has experienced a gradual return of her sense of smell, though it remains incomplete. She also reports morning mucus discharge and occasional headaches. Additionally, she mentions sensitivity in the facial area during washing, which she attributes to ongoing healing. There is no mention of any other systemic symptoms or significant changes in her condition since the surgery. JOSE ENRIQUE MARADIAGA MD [address] [facility],[address] [place] [address], [address], [facility] 04/01/2025 15:57:03 05/02/2025 text/html ROS as noted in the HPI Nose is breathing better but still notes reduced sense of smell despite removal of a right antrochoanal polyp. Has bilateral tinnitus and head pressure that was even noted before the surgery JOSE ENRIQUE MARADIAGA MD [address] [facility],[address], [address], [facility] 05/02/2025 10:00:18 06/27/2025 text/html ROS as noted in the HPI 70 yo F presents for evaluation of hoarseness. 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 Has bilateral tinnitus and head pressure that was even noted before the surgery FERMIN MANN MD [address] [facility],[address], [address], [facility] 06/29/2025 09:27:58 07/25/2025 text/html ROS as noted in the HPI Betzaida Teixeira is a 70-year-old female who presents for evaluation. An endoscopy technician was utilized during the encounter to facilitate communication in Fijian. She still notes difficulty with hoarseness and singing in scientology. Reports food sticking. Previous laryngoscopy with Dr. Mann was normal. Nasal breathing and sense of smell are better JOSE ENRIQUE MARADIAGA MD [address] [facility] [address] [place] [address], [address], [facility] 07/25/2025 15:09:33 OBGyn Episode No OBEpisode recorded.
--- OUTSIDE RECORDS SUMMARY | 2025-08-05 09:52 | XMS_ITS | Continuity of Care Document ---
Author Organization [place] - [facility], [facility] Address [address] [place] [address] Care Team Providers Care Certified First Assistant Name Role Phone YANIRA MARTINEZ Referring Provider YANIRA MARTINEZ Referring Provider Assessment Encounter Date Assessment Date Assessment LastModified by Organization Details LastModified Time 07/25/2025 07/25/2025 Betzaida Teixeira is a 70-year-old [...] speech therapy referra l 2024 025 [email or web address] [facility] Physical Medicine & Rehabilitation Scheduling Dept, [address] [facility], [place], [address], 07/26/2025 12:29:24 Procedures None recorde d. Surgeries None recorde d. Imaging barium swallow study 2024 025 [email or web address] [facility], [address], [place], [address], 08/04/2025 09:58:51 Medication Orders None recorde d. Patient TargetsNo targets recorded. Patient Instructions Encounter Date Encounter Id Patient Instructions Last Modified By Organization Details Last Modified Time 07/25/2025 [id number] - Undergo a swallowing test. - Follow up with a speech therapist for further evaluation and management. charu Not available 07/25/2025 14:06:26 Please note: Parts of this encounter note have been generated by AI based on audio conversation. Patient consent was required prior to utilizing this technology. Content review was required prior to finalizing the note. charu Not available 07/25/2025 14:06:27 Reason for Referral Referring Physician: Jose Enrique ramirez, Otolaryngology, Encounter Date: 07/25/2025 Results Created Date Observation Date Name Description Value Unit Range Abnormal Flag Note LastModifiedBy Organization Detail LastModifiedTime 08/03/2008/03/2025 curt negron study No observ ation record ed. [email or web address] Not Available 09:24:16 Result Notes None recorded. Problems Name Problem SNOMED Code Status Onset Date Resolution Date Notes Provider Name and Address Organization Details Recorded Time Chronic rhinitis 73340821 Active 2024 JOSE ENRIQUE FARLEY MD [address] [place] [address], [place], [address], [facility] 15:55:54 Polyp of nasal cavity 641867845 Active 2024 JOSE ENRIQUE FARLEY MD [address] [place] [address], [place], [address], [facility] 15:55:52 Chronic sinusitis 60425134 Active 2024 JOSE ENRIQUE FARLEY MD [address] [place] [address], [place], [address], [facility] 14:04:34 Deviated nasal septum 573590500 Active 2024 JOSE ENRIQUE FARLEY MD [address] [place] [address], [place], [address], [place] - [facility] [place] [facility] 08:48:27 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, [address], [place] [facility] [place] [facility] 08:49:51 Bilateral tinnitus 9633191685957 Active 2024 JOSE ENRIQUE FARLEY MD [address] [facility], [place], [address], [place] [facility] [place] [facility] 15:55:59 Sensorineur al hearing loss of bilateral ears 900143670 Active 2024 JOHN SANDERS 100 [facility], [address], [place], [address], [place] [facility] [place] [facility] 09:28:28 Frequent headache 447465179 Active 2024 JOSE ENRIQUE FARLEY MD 100 [facility], [address], [place], [address], [place] [facility] [place] [facility] 09:52:21 Sense of smell impaired 30424904 Active 2024 JOSE ENRIQUE FARLEY MD 100 [facility], [address], [place], [address], [place] [facility] [place] [facility] 09:59:29 Hoarse 22389940 Active 2024 FREMIN MANN MD 100 [facility], [address], [place], [address], [place] [facility] [place] [facility] 14:23:16 Oropharynge al dysphagia 84745833 Active 2024 JOSE ENRIQUE FARLEY MD 100 [facility], [address], [place], [address], [place] [facility] [place] [facility] 14:04:18 Dysphonia 92510211 Active 2024 JOSE ENRIQUE FRALEY MD 100 [facility] [address], [address], [place] [facility] 14:04:29 Problem Notes None recorded. Procedures Surgical History Date Name Laterality Status Provider Name and Address Organization Details Recorded Time 07/25/20 25 Fiberoptic Laryngoscopy (Comprehensive) completed JOSE ENRIQUE MARADIAGA MD 100 [facility] [place],[address], [address], [place] - [facility] 07/25/2025 14:05:36 06/27/20 25 Fiberoptic Laryngoscopy (Comprehensive) completed FERMIN MANN MD 100 [facility],[address], [address], [facility] - [facility] 06/29/2025 09:25:09 05/02/20 25 JMSNasal/Sinus Endoscopy completed JOSE ENRIQUE MARADIAGA MD 100 [facility],[address], [address], [facility] - [facility] 05/02/2025 09:51:53 05/02/20 25 Tympanometry - 82686 completed JOHN SANDERS 100 [facility],[address], [address], [facility] - [facility] 05/02/2025 09:28:23 05/02/20 25 [employer] Audio - 14749 completed JOHN SANDERS 100 [facility],[address], [address], [facility] - [facility] 05/02/2025 09:28:19 04/01/20 25 Fiberoptic Laryngoscopy (Comprehensive) completed JOSE ENRIQUE MARADIAGA MD [address] [facility] [place],[address], [address], [facility] - [facility] 04/01/2025 15:55:04 03/15/20 25 JMSNasal/Sinus Endoscopy-LATRICE EMDEREK completed INÉS CONTRERAS PA-C [address] [facility] [place],[address], [address], [facility] - [facility] 03/15/2025 14:48:39 03/03/20 25 JMSNasal/Sinus Endoscopy-LATRICE EMDEREK completed DAYANARA AREVALO PA-C [address] [facility] [address] [facility], [place], [address], [facility] 03/03/2025 12:50:21 03/01/20 25 functional endoscopic sinus surgery completed JOSE ENRIQUE MARADIAGA MD [address] [place] [address], [address], [facility] - [facility] 03/01/2025 14:36:58 03/01/20 25 nasal septoplasty completed JOSE ENRIQUE MARADIAGA MD [address] [facility], [place], [address], [facility] - [facility] 03/01/2025 14:37:30 03/01/20 25 direct laryngoscopy with operating microscope completed JOSE ENRIQUE MARADIAGA MD [address] [facility] [address] [place] [address], [address], [facility] 03/01/2025 14:57:42 12/23/19 25 Fiberoptic Laryngoscopy (Comprehensive) completed JOSE ENRIQUE MARADIAGA MD [address] [facility], [place], [address], [facility] 12/22/2024 08:49:37 10/11/19 25 JMSNasal/Sinus Endoscopy completed JOSE ENRIQUE MARADIAGA MD [address] [place] [address], [address], [facility] 10/11/2024 11:10:57 nasal polypectomy completed JOSE ENRIQUE MARADIAGA MD [address] [facility] [address] [place] [address], [address], [facility] 10/11/2024 11:08:59 Imaging Results None recorded. Procedure [...] propionate 50 mcg/actuati on nasal spray,suspe nsion [place] 2 sprays every day by intranasa l route. 2024 active Not Available Not Available Not Avai lable Xarelto active Not Available Not Avail able Not Available Vitals Date Recorded Body height Body mass index (BMI) Body weight Systolic And Diastolic Provider Name and Address Organization Details Last Updated DateTime 07/25/2025 167.64 cm 17.8 kg/m2 71969.16 g 132/72 mm[Hg] Barbara Mederos [place] - [facility] 07/25/2025 13:55:21 Social History None recorded. Functional [...] ICD10 Code Diagnosis IMO Codes Diagnosis Note [id number] FERMIN MANN MD [facility] of [address] [address] 06/27/2025 14:10:47 06/27/2025 16:26:55 Hoarse 65161648 R49.0 42711 Chronic rhinitis 8726403 6 J31.0 2545 [id number] JOSE ENRIQUE NIEVES MD [facility] of [address] [address] 07/25/2025 13:43:39 07/25/2025 14:08:40 Oropharyngeal dysphagia 78618660 R13.12 8208 Dysphonia 69508211 R49.0 06715 Chronic sinusitis 171058 00 J32.8 66428 Health Concerns Section Related Observation LastModified by Organization Detai ls LastModified Time None Recorded Concern Status LastModified by Organization Details LastModified Time None Recorded Payers Encounter Date Sequence Insurance Name Policy Number Policy Duff Covered Member ID Duff Member ID Guarantor Name 07/25/2025 1 [place] [facility] Betzaida Teixeira [id number] Betzaida Teixeira Notes Date Note Type Note Provider Name and Address Organization Details Recorded Time 07/25/2025 text/html ROS as noted in the HPI Betzaida Teixeira is a 70-year-old female who presents for evaluation. An certified pharmacy tech was utilized during the encounter to facilitate communication in [place]. She still notes difficulty with hoarseness and singing in religion. Reports food sticking. Previous laryngoscopy with Dr. Mann was normal. Nasal breathing and sense of smell are better JOSE ENRIQUE MARADIAGA MD [address] [place] [address], [place], [address], [facility] - [facility] 07/25/2025 15:09:33 OBGyn Episode No OBEpisode recorded.
--- OUTSIDE RECORDS SUMMARY | 2025-08-05 09:52 | XMS_ITS | Continuity of Care Document ---
Author Organization [place] - [facility], [facility] Address [address] [place] [address] Care Team Providers Care Cheese Specialist Name Role Phone YANIRA MARTINEZ Referring Provider [phone] YANIRA MARTINEZ Referring Provider [phone] Assessment Encounter Date Assessment Date Assessment LastModified by Organization Details LastModified Time 06/27/2025 06/27/2025 70-year-old female who has a [...] clinical response. [email or web address] Not available 06/29/2025 09:27:01 Plan of Treatment Reminders Order Date Submit Date Provider Last Modified By Organization Details Last Modified Time Details Appointments Establish ed 30 2025 10:00A M ASHLEY FARLEY MD Not available Not available Not available Lab None recorded. Referral None recorded. Procedures None recorded. Surgeries None recorded. Imaging None recorded. Medication Orders Pepcid 20 mg tablet 2024 025 [id number], [address] [facility], [place], [address], 06/27/2025 14:41:04 Patient TargetsNo targets recorded. Patient InstructionsNo instructions recorded. Reason for Referral None Reported. Results Created Date Observation Date Name Description Value Unit Range Abnormal Flag Note LastModifiedBy Organization Detail LastModifiedTime 08/03/20 25 08/03/2025 curt negron study No observ ation record ed. [email or web address] Not Available 09:24:16 Result Notes None recorded. Problems Name Problem SNOMED Code Status Onset Date Resolution Date Notes Provider Name and Address Organization Details Recorded Time Chronic rhinitis 15917676 Active 2024 ASHLEY FARLEY MD [address] [place] [address], [place], [address], [facility] - [facility] [place] 15:55:54 Polyp of nasal cavity 067505589 Active 2024 ASHLEY FARLEY MD [address] [place] [address], [facility] [place], [address], [facility] - [facility] [place] 15:55:52 Chronic sinusitis 75201379 Active 2024 ASHLEY FARLEY MD [address] [place] [address], [facility] [place], [address], [facility] - [facility] [place] 14:04:34 Deviated nasal septum 653385062 Active 2024 ASHLEY FARLEY MD [address] [place] [address], [facility] [place], [address], [facility] - [facility] [place] 08:48:27 Benign neoplasm of base of tongue 47770992 Active 2024 ASHLEY FARLEY MD [address] [place] [address], [place], [address], [facility] - [facility] [place] 08:49:51 Bilateral tinnitus 5272240360933 Active 2024 ASHLEY FARLEY MD [address] [address], [facility] [place], [address], [facility] - [facility] [place] 15:55:59 Sensorineur al hearing loss of bilateral ears 695650537 Active 2024 JOHN SANDERS 100 [facility],[address], [facility] [place], [address], [place] - [facility] [place] 09:28:28 Frequent headache 811028667 Active 2024 ASHLEY FARLEY MD 100 [facility] [address], [facility] [place], [address], [place] - [facility] [place] 09:52:21 Sense of smell impaired 95840722 Active 2024 ASHLEY FARLEY MD 100 [facility] 100, [facility] [place], [address], [facility] - [facility] [place] 09:59:29 Hoarse 26399155 Active 2024 FERMIN MANN MD 100 [facility] 100, [facility] [place], [address], [facility] - [facility] 14:23:16 Oropharynge al dysphagia 29415895 Active 2024 ASHLEY FARLEY MD 100 [facility] [place] [address], [facility] [place], [address], [facility] - [facility] 14:04:18 Dysphonia 69042733 Active 2024 ASHLEY FARLEY MD [address] [facility] [address], [facility] [place], [address], [facility] - [facility] [place] 14:04:29 Problem Notes None recorded. Procedures Surgical History Date Name Laterality Status Provider Name and Address Organization Details Recorded Time 07/25/20 25 Fiberoptic Laryngoscopy (Comprehensive) completed ASHLEY MARADIAGA MD [address], [address], [place] - [facility] 07/25/2025 14:05:36 06/27/20 25 Fiberoptic Laryngoscopy (Comprehensive) completed FERMIN MANN MD [facility],[address], [address], [facility] - [facility] 06/29/2025 09:25:09 05/02/20 25 JMSNasal/Sinus Endoscopy completed ASHLEY MARADIAGA MD [address] [facility],[address], [address], [place] - [facility] 05/02/2025 09:51:53 05/02/20 25 Tympanometry - 64938 completed MARIO FLETCHER, AUD [address] [facility],[address], [address], [place] - [facility] 05/02/2025 09:28:23 05/02/20 25 Air [employer] Bone Audio - 97988 completed MARIO FLETCHER, AUD 100 [facility],[address], [address], [place] - [facility] 05/02/2025 09:28:19 04/01/20 25 Fiberoptic Laryngoscopy (Comprehensive) completed ASHLEY MARADIAGA MD [address] [facility],[address], [address], [facility] - [facility] 04/01/2025 15:55:04 03/15/20 25 JMSNasal/Sinus Endoscopy-DEBRID EMENT completed INÉS CONTRERAS PA-C 100 [facility],[address], [address], [facility] - [facility] 03/15/2025 14:48:39 03/03/20 25 JMSNasal/Sinus Endoscopy-DEBRID EMENT completed DAYANARA AREVALO PA-C 100 [facility],[address], [address], [facility] - [facility] 03/03/2025 12:50:21 03/01/20 25 functional endoscopic sinus surgery completed ASHLEY MARADIAGA MD [address] [facility],[address] [place] [address], [address], [facility] - [facility] 03/01/2025 14:36:58 03/01/20 25 nasal septoplasty completed ASHLEY MARADIAGA MD [address], [place], [address], [facility] - [facility] 03/01/2025 14:37:30 03/01/20 25 direct laryngoscopy with operating microscope completed ASHLEY MARADIAGA MD [address], [place], [address], [facility] - [facility] [place] 03/01/2025 14:57:42 12/23/19 25 Fiberoptic Laryngoscopy (Comprehensive) completed ASHLEY MARADIAGA MD [address], [place], [address], [facility] - [facility] 12/22/2024 08:49:37 10/11/19 25 JMSNasal/Sinus Endoscopy completed ASHLEY MARADIAGA MD [address]AM[address]ERT[address] [facility], [place], [address], [facility] - [facility] 10/11/2024 11:10:57 nasal polypectomy completed ASHLEY MARADIAGA MD [address], [place], [address], [facility] - [facility] 10/11/2024 11:08:59 Imaging Results None recorded. [...] propionate 50 mcg/actuati on nasal spray,suspe nsion [place] 2 sprays every day by intranasa l route. 2024 active Not Available Not Available Not Avai lable Xarelto active Not Available Not Avail able Not Available Vitals Date Recorded Body height Body mass index (BMI) Body weight Systolic And Diastolic Provider Name and Address Organization Details Last Updated DateTime 06/27/2025 167.64 cm 17.8 kg/m2 90194.16 g 158/82 mm[Hg] Hali Anderson [place] - [facility] 06/27/2025 14:17:57 Social History None recorded. Functional Status None [...] ICD10 Code Diagnosis IMO Codes Diagnosis Note [id number] FERMIN MANN MD [facility] [address] [address] 06/27/2025 14:10:47 06/27/2025 16:26:55 Hoarse 92447566 R49.0 77936 Chronic rhinitis 2237796 6 J31.0 2545 Health Concerns Section Related Observation LastModified by Organization Detai ls LastModified Time None Recorded Concern Status LastModified by Organization Details LastModified Time None Recorded Payers Encounter Date Sequence Insurance Name Policy Number Policy Duff Covered Member ID Duff Member ID Guarantor Name 06/27/2025 1 [place]: [facility] [id number] [facility] Notes Date Note Type Note Provider Name and Address Organization Details Recorded Time 06/27/2025 text/html ROS as noted in the HPI 70 yo F presents for evaluation of hoarseness. 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 Has bilateral tinnitus and head pressure that was even noted before the surgery FERMIN MANN MD [address] [place] [address], [address], [place] - [facility] 06/29/2025 09:27:58 OBGyn Episode No OBEpisode recorded.
== END 2025-08-05 09:04 | disposition home or self-care (01) ==
LOC: HO.HPHYSR 09:03
PROVIDERS: PCP Family Medicine; Visit Provider Physical Medicine & Rehabilitation
DX: M53.3 Sacrococcygeal disorders, not elsewhere classified (principal); M46.1 Sacroiliitis, not elsewhere classified
CPT/HCPCS: 27096; J2003; J3301; Q9967

== ENCOUNTER 2025-08-05 09:03 | Outpatient (AMB) | payer MEDICAID, SELFPAY ==
[2025-08-05 09:13] VITALS: BP 134/66; PULSE 80; BMI 21.0
--- NOTE | 2025-08-05 09:13 | A.PHYSOV_ITS ---
Vital Signs 08/05/25 09:13 Height 5 ft 7.5 in Weight 136 lb BMI 21.0 BP 134/66 Pulse 80 Intake Visit Reasons: Right Sacroiliac Joint Injection Intake Note: Patient is a 70 year old female in office today for a Right Sacroiliac Joint Injection. Variety Performer Required: Yes Variety Performer Language: Malawian Variety Performer Services: Variety Performer Offered & Declined Information Interpreted: non-clinical & clinical Accompanied by: provider speaks greenlandic Allergies No Known Allergies Allergy (Verified 08/05/25 09:14) [facility] Medical History Osteoarthritis of carpometacarpal joint of right thumb Low back pain Sacroiliac inflammation Sacroiliac dysfunction Cervical radiculitis Neck pain Rotator cuff impingement syndrome of right shoulder Right shoulder pain Right carpal tunnel syndrome Right wrist pain Surgical History History of uterine fibroid (Unknown) History of appendectomy (Unknown) History of bunionectomy (Unknown) Social History Household Members: Spouse Alcohol intake: current Alcohol intake frequency: holidays/special occasions only Patient Tobacco Use Status: Former Tobacco user Current occupational status: retired Physical Exam Vital Signs: Last Vital Signs Pulse 80 08/05/25 09:13 BP 134/66 08/05/25 09:13 BMI result Body Mass Index 21.0 Office Procedures AMB Sacroiliac Joint Injection AMB Sacroiliac Joint Injection Procedure Details: Procedure performed: Right sacroiliac joint injection Preop diagnosis: SI joint mediated pain, sacroiliitis Postop diagnosis: The same Anesthesia: Local After informed consent was obtained patient was brought into the procedure room and placed in prone position on the procedure table. Skin over lumbar sacral area was prepped and draped in the usual sterile manner. The inferior portion of the right sacroiliac joint was visualized utilizing fluoroscopy. 3.5 in 22 gauge spinal needle was introduced percutaneously and advanced into the joint. Needle placement was verified utilizing 0.5 cc of Omnipaque contrast solution. 2.5 cc of therapeutic solution containing 40 mg of triamcinolone and 2% lidocaine was injected after negative aspiration for blood. The C-arm was obliqued about 30? in the contralateral direction an area just medial the proximal portion of the sacroiliac joint was visualized. 3.5 in 22 gauge spinal needle was introduced percutaneously and advanced to enter the area. Once in place, needle placement was identified utilizing 1 cc of Omnipaque contrast solution. Total volume of 2.5 cc containing 40 mg of triamcinolone and 2% lidocaine was injected to block the lateral branches at the sacroiliac ligament. Radiation exposure was documented in the chart. Sacroiliac Joint Injections 80245 - use with FL Gd order: Right All charges added?: Procedure code (CPT) selection complete Office Meds Kenalog 40 mg/mL suspension for injection Performing Provider: Cholo Funes DO Per[facility] Administered by: Cholo Funes DO on 08/05/25 09:18 Dose Route Admin Location Dispensed Lot Number Expiration Date [facility] Child Development Associate Teacher 80 mg intra-articular 2 mL [address]-1 [employer] Total Dispensed Waste 2 mL 0 % lidocaine (PF) 20 mg/mL (2 %) injection solution Performing Provider: Cholo Funes DO Performing Location: [facility] Administered by: Cholo Funes DO on 08/05/25 09:18 Dose Route Admin Location Dispensed Lot Number Expiration Date [facility] Child Development Associate Teacher 120 mg intra-articular 10 mL [id number] [facility] Disp[facility] Waste 10 mL 40 % Omnipaque 300 300 mg iodine/mL intravenous solution Performing Provider: Cholo Funes DO Performing Location: [facility] Administered by: Cholo Funes DO on 08/05/25 09:18 Dose Route Admin Location Dispensed Lot Number Expiration Date [facility] Child Development Associate Teacher 3 mL intra-articular 10 mL [id number] [employer] Total Dispensed Waste 10 mL 70 % Assessment & Plan Assessment & Plan (1) Sacroiliac dysfunction: Code(s): M53.3 - Sacrococcygeal disorders, not elsewhere classified Category: Medical Plan: Procedure (2) Sacroiliac inflammation: Code(s): M46.1 - Sacroiliitis, not elsewhere classified Category: Medical Plan: Procedure Orders: Orders AMB Sacroiliac Joint Injection Today M46.1 - Sacroiliitis, not elsewhere class ified, M53.3 - Sacrococcygeal disorders, not elsewhere classified FL Guided Sacroiliac Jt Inj RT Today M46.1 - Sacroiliitis, not elsewhere classified, M53.3 - Sacrococcygeal disorders, not elsewhere classified Coding Level of Care Code Procedure Only Diagnoses Sacroiliac dysfunction M53.3 Sacroiliac inflammation M46.1 CPT Codes AMB Sacroiliac Joint Injection - Hip intraarticular Injection - 76866: Right ([id number])
--- OUTSIDE RECORDS SUMMARY | 2025-08-05 09:29 | XMS_ITS | Clinical Summary ---
Author Organization [place] [address] [facility] Building Address [address] [place] [address] Phone Care Team Providers Care Tool Repairer Name Role Phone Nerissa Rubio MD Primary Care Provider Allergies No known active allergies Medications rhubarb root extract 4 mg tablet Take by mouth. 4 Active traMADoL (ULTRAM) 50 mg tablet Take 1 Tablet by mouth every 4 hours as needed. Active rivaroxaban (XARELTO) 20 mg tablet Take 1 tablet (20 mg total) by mouth 1 (one) time each day with dinner. Take with food. 30 tablet 11 5 Active losartan (Cozaar) 25 mg tabletIndication s:Primary hypertension Take 1 tablet (25 mg total) by mouth 1 (one) time each day. 90 each 3 5 07/06/20 26 Active metoprolol succinate (TOPROL-XL) 50 mg 24 hr tablet Take 1 tablet (50 mg total) by mouth 1 (one) time each day. Do not crush or chew. 30 each 11 5 07/07/20 26 Active metoprolol succinate (TOPROL-XL) 25 mg 24 hr tablet Take 1 tablet (25 mg total) by mouth 1 (one) time each day. Do not crush or chew. 30 each 11 5 07/07/20 25 Discontinue d(Dose adjustment) dilTIAZem CD (CARDIZEM CD) 240 mg 24 hr capsuleIndicatio ns:Atrial fibrillation with RVR (CMS/HCC V24, CMS/HCC V28),Primary hypertension Take 1 capsule (240 mg total) by mouth 1 (one) time each day. 30 each 11 5 07/07/20 25 Discontinue d(Discontin ued by another clinician) Active Problems Problem Noted Date Diagnosed Date Atrial fibrillation with RVR 09/03/2023 Overview (07/01/2024): Last Assessment & Plan: [...] Type Department Care Team Description 07/05/2025 Telephone [facility] - [address] [facility] [address] [place] [phone] Marie Guillory MD 06/28/2025 2:55 PM EST Office Visit [facility] - [address] [facility] [address] [place] [phone] Marie Guillory MD Atrial fibrillation with RVR [...] Surgery Date Site/Laterality Comments MYOMECTOMY 03/12/2001 PROCEDURE: DC LAPS MYOMECTOMY EXC 1-4 MYOMAS 250 GM/<; COMMENT: done in [place] APPENDECTOMY 03/01/1980 PROCEDURE: HISTORICAL APPENDECTOMY OTHER SURGICAL HISTORY PROCEDURE: DC EXCISION NASAL POLYP SIMPLE; COMMENT: done in [place] OTHER SURGICAL HISTORY 08/20/2022 PROCEDURE: DENTAL RECEMENT CROWN; COMMENT: done [place] BREAST ENHANCEMENT SURGERY W IMPLANT HYSTERECTOMY Medical [...] Additional history exists Breast Cancer Screening 03/15/2027 03/15/20, 01/21/2024, 01/19/2024 RSV Immunization Adult Patients (1 [...] screening mammogram for malignant neoplasm of breast [facility] DEXA AXIAL SKELETON Routine 01/15/2024 9:01 AM [...] GEMUSE QTc 463 ms GEMUSE P Wave [place] 56 degrees GEMUSE R [place] 58 degrees GEMUSE T [place] 59 degrees GEMUSE ECG Interpretation Normal sinus rhythm When compared with ECG of 30-NOV-2024 15:12, No significant change was found Confirmed by LAMA GUILLORY ([id number]) on 07/03/2025 11:01:53 PM GEMUSE [...] year. Mamm[facility] location: [facility] [address], [address] -------- FINAL REPORT -------- Dictated By: Dipak Galicia Dictated Date: 03/16/2025 07:38 ET Assigned Physician: Dipak Galicia Reviewed and Electronically Signed By: Dipak Galicia Signed Date: 03/16/2025 07:44 ET Workstation ID: [id number] Transcribed By: Self Edit Transcribed Date: 03/16/2025 07:38 ET Narrative 03/16/2025 7:44 AM EDT EXAM: SCREENING MAMMOGRAPHY, BILATERAL HISTORY: SCREENING. Prior implant surgery COMPARISON: 6/3/24 TECHNIQUE: Synthesized CC and MLO projections of each breast with implant displacement. Tomosynthesis of each breast in the CC and MLO projections with implant displacement. ADDITIONAL IMAGING: Digital mammography of each breast in the craniocaudal and MLO projections without displacement. Computer-aided detection was employed with the [employer] AI 3-D. TISSUE DENSITY: The breasts are [...] displacement. Computer-aided detection was employed with the makr [employer] AI 3-D. TISSUE DENSITY: The breasts are [...] year. Mammography location: [facility] [address], [address] -------- FINAL REPORT -------- Dictated By: Dipak Galicia Dictated Date: 03/16/2025 07:38 ET Assigned Physician: Dipak Galicia Reviewed and Electronically Signed By: Dipak Galicia Signed Date: 03/16/2025 07:44 ET Workstation ID: [id number] Transcribed By: Self Edit Transcribed Date: 03/16/2025 07:38 ET us Joellen CULLEN IMG BI PROCEDURES Final Resul t * [facility] DEXA AXIAL SKELETON (01/15/2024 9:01 AM EDT) Anatomical Region Laterality Modality Mammography 01/15/2024 7:45 AM EDT Narrative 01/15/2024 9:01 AM EDT [facility] Diagnostic Imaging Department [address] [place] [phone] Patient: AUGUSTINA TEIXEIRA /Age/Sex: 1955 68 - Unit#: [id number] Location/Status: [facility] Mnemonic/Ordering Site: [facility] Ordering Physician: NATI GARLAND NONPROFIT FIN[employer]CIAL CONTROLLER [facility] Dexa Axial Skeleton - 01/15/24832 Report [...] probability of hip fracture of 1.5%. Code 93867 Dictating Physician: ROBY MOORE MD Electronically Signed by: ROBY MOORE MD Dic Date/Time: 01/15/24899 Sign date/Time: 01/15/24900 Procedure Note Roby Moore MD - 04/05/2024 [facility] Diagnostic Imaging Department [address] [place] [address] Patient: AUGUSTINA TEIXEIRA/Age/Sex: 1955 - 68 - F Unit#: [id number] [facility] Mnemonic/Ordering Site: [facility] Ordering Physician: NATI GARLAND [employer]PROFIT FIN[employer]CIAL CONTROLLER [facility] Dexa Axial Skeleton - 01/15/24 - 0833 Report Status:Signed HISTORY: The patient is a [...] density of the femurs bilaterally is 0.902 gm/qa2ydqmt is 89% of that of young normals [...] probability of hip fracture of 1.5%. Code 43112 Dictating Physician: ROBY MOORE MD Electronically Signed by: ROBY MOORE MD Dic Date/Time: 01/15/24 09 Sign date/Time: 01/15/24 09 Nati Garland NONPROFIT FINANCIAL CONTROLLER IMG BI PROCEDURES Final Result * Annual BMP Blood Test (09/24/2023) [facility] Annual BMP Blood Test Abstracted Historical Provider HEALTH MAINTENANCE Final Result * Hepatitis C Screening (09/24/2023) [facility] Hepatitis C Screening Abstracted Historical Provider HEALTH MAINTENANCE Final Result * Lipid panel (09/24/2023) [facility] LDL/HDL Ratio 2 0 - 4 Triglycerides 36 0 - 150 mg/dL Cholesterol 193 0 - 200 mg/dL HDL 106 >=40 mg/dL LDL Cholesterol 80 0 - 100 mg/dL Blood Venous blood specimen / Unknown us Historical Provider LAB BLOOD ORDERABLES Vanessa willis Result from Last 3 Months or Most Recently Relevant to Health Maintenance Insurance MEDICAID - [place] Care Teams Tool Repairer Relationship Specialty Start Date End Date Nerissa Rubio MD [address] [place] [phone] PCP - General Internal Medicine 09/23/24
== END 2025-08-05 09:46 | disposition home or self-care (01) ==
LOC: HO.HPHYS 09:03
PROVIDERS: PCP Family Medicine; Visit Provider Physical Medicine & Rehabilitation
DX: M53.3 Sacrococcygeal disorders, not elsewhere classified (principal); M46.1 Sacroiliitis, not elsewhere classified
CPT/HCPCS: 27096